=== PATIENT | female | born 1960 | race Two or more races ===

== ENCOUNTER → 2024-11-08 | Day surgery (SDC) | payer OTHER ==
[2024-11-05 12:14] LABS: Hematocrit 36.4 % (36.0-46.0); Hemoglobin 12.2 g/dL (12.2-16.2); Mean Corpuscular Hemoglobin 29.6 pg (28.0-32.0); Mean Corpuscular Hgb Conc. 33.4 g/dL (32.0-36.0); Mean Corpuscular Volume 88.7 fL (80.0-100.0); Platelet Count (auto) 280 10^3/uL (140-450); Red Blood Cells 4.11 10^6/uL (4.0-5.20); Red Cell Distribution Width 14.6 % (11.8-14.3); White Blood Cell 8.8 10^3/uL (4.4-10.8)
[2024-11-05 12:37] LABS: Band Neutrophils % (manual) 0; Basophils % (manual) 0 (0.0-2.0); Blast Cells 0; Metamyelocytes % 0; Myelocytes % 0; Promyelocytes % 0; Reactive Lymphocytes 0
[2024-11-05 12:41] LABS: INR 0.98 (0.9-1.15); Partial Thromboplastin Time 26.9 SEC (24.5-34.5); Prothrombin Time 10.4 sec (9.3-11.8)
[2024-11-05 12:45] LABS: Urine Bacteria MOD /hpf (None Seen); Urine Blood Negative /uL (Negative); Urine Clarity Turbid (Clear); Urine Color Yellow (Yellow); Urine Mucus FEW (None Seen); Urine Protein, UAD Negative (Negative); Urine Specific Gravity 1.022 (1.001-1.035); Urine Squamous Epithelial Cell FEW /hpf (<5); Urine Urobilinogen Normal (Negative); Urine WBC 41 /HPF (0-5); Urine pH 5.5 (5.0-9.0)
[2024-11-05 12:47] LABS: Alanine Aminotransferase 32 U/L (7-40); Alkaline Phosphatase 87 U/L (46-116); Anion Gap 11 (5-15); BUN/Creatinine Ratio 17.3 (10.0-20.0); Blood Urea Nitrogen 17 mg/dL (9-23); Calcium 9.8 mg/dL (8.7-10.4); Carbon Dioxide 24 mmol/L (20-31); Chloride 102 mmol/L (98-107); Potassium 4.5 mmol/L (3.5-5.1); Sodium 137 mmol/L (136-145); Total Protein 7.3 g/dL (5.7-8.2)
[2024-11-05 12:48] LABS: Albumin 4.7 g/dL (3.2-4.8); Bilirubin, Total 0.5 mg/dL (0.2-1.0)
[2024-11-05 12:49] LABS: Aspartate Aminotransferase 40 U/L (13-40); Glucose 248 mg/dL (74-106)
[2024-11-05 14:10] LABS: Eosinophils % (manual) 10 (0-7); Lymphocytes % (manual) 19 (10.0-50.0); Monocytes % (manual) 4 (0-12)
[2024-11-05 14:11] LABS: Platelet Estimate Adequate
[~2024-11-08] VITALS: Ht 162.6 cm; Wt 79.8 kg
[~2024-11-08] MED LIST: AMIT25TA20 PO; ASPI1TAB20 PO; ATOR20TA PO; CHOLTAB12 PO; DexAMETHasone SOD PHOS 10MG/1ML VIAL INJ ONE; FOLI400T5 PO; GABA-1250 PO; GABA-1308 PO; GLIM-38 PO; GLYCOPYRROLATE 0.2 MG/ML 1ML VIAL ONE; HYDR1TAB97 PO; IRONCAP19 OR; KETOROLAC TROMETH 30 MG/ML 1ML VIAL ONE; LEVO-848 PO; LIDOCAINE 2% (LOCAL ANESTH.) PF 5ml SDV ONE; LIDOCAINE HCL 2% TOP JELLY 5ML TOP ONE; LOSA-533 PO; METF-370 PO; METH2.5T PO; ONDANSETRON HCL 4 MG/2 ML VIAL ONE; PANT40TA2 PO; PROPOFOL 10 MG/ML 20 ML IV ONE; ROCURONIUM 10MG/ML 10ML VIAL IV ONE; SITA100T7 PO; SUGAMMADEX 200mg/2ml Vial (100MG/ML) IV ONE; TURM500C3 OR
== END | disposition home or self-care (01) ==
LOC: SUR 06:24
PROVIDERS: ATTEND Urology
DX: N20.0 Calculus of kidney (principal); Z53.8 Procedure and treatment not carried out for other reasons; I10 Essential (primary) hypertension; M06.9 Rheumatoid arthritis, unspecified; E66.3 Overweight; Z68.30 Body mass index [BMI] 30.0-30.9, adult; Z79.899 Other long term (current) drug therapy
CPT/HCPCS: 36415; 80053; 81001; 85007; 85027; 85610; 85730; 87086; J2003; J1100; J1885; J2405; J2704